=== PATIENT | male | born 2005 | race Caucasian/White ===

== ENCOUNTER 2024-07-03 13:20 | Emergency (ER) | payer MEDICAID, OTHER ==
[~2024-07-03] VITALS: Ht 182.9 cm; Wt 86.2 kg
[2024-07-03 13:35] VITALS: O2SAT 100
[2024-07-03] MEDS: METOCLOPRAMIDE HCL 10MG/2ML VIAL IV ONE (15:00)
[2024-07-03] MEDS: ACETAMINOPHEN 325MG TABLET PO ONE (15:00)
[2024-07-03] MEDS: LACTATED RINGERS 1,000 ML IV SCH (16:22)
[2024-07-03 17:15] VITALS: BP 136/79; PULSE 75; RESP 18; TEMP 36.83628; O2SAT 99
== END 2024-07-03 17:56 | disposition home or self-care (01) ==
LOC: ER 13:44
DX: R51.9 Headache, unspecified (principal)
CPT/HCPCS: 70450; 96361; 96374; 99285; J2765; Z7610